=== PATIENT | female | born 1975 | race African-American/Black ===

== ENCOUNTER 2021-09-07 15:07 | Inpatient (IN) | payer OTHER ==
[2021-09-07 16:50] LABS: #Eosinphils 0.4 10x3/uL (0.0-0.5); #Monocytes 0.7 10x3/uL (0.0-1.1); #Neutrophils 6.8 10x3/uL (1.5-8.4); %Basophils 0.4 % (0.0-2.0); %Eosinophils 3.4 % (0.0-6.0); %Lymphocytes 24.7 % (18.0-47.0); %Monocytes 6.9 % (0.0-10.0); %Neutrophils 64.1 % (40.0-75.0); Hemoglobin 11.1 g/dL (12.0-15.5); Mean Corpuscular HGB CONC 33.2 g/dL (32.0-36.0); Mean Corpuscular Hemoglobin 24.3 pg (27.0-33.0); Mean Corpuscular Volume 73.2 fl (81.6-98.3); Mean Platelet Volume 9.7 fl (7.4-10.4); Platelet Count 348 10x3/uL (150-450); RBC Distribution Width 14.2 % (11.5-14.5); Red Blood Cell (RBC) Count 4.56 10x6/uL (3.90-5.03); White Blood Cell (WBC) Count 10.5 10x3/uL (3.5-10.5)
[2021-09-07 17:14] LABS: ALT (SGPT) 18 U/L (8-55); AST (SGOT) 13 U/L (5-34); Albumin 4.2 g/dL (3.5-5.0); Alkaline Phosphatase 67 U/L (40-110); Anion Gap 14 mmol/L (10-20); BUN (Urea Nitrogen) 18 mg/dL (7.0-18.7); Bilirubin, Total 0.4 mg/dL (0.2-1.2); Calc. Creatinine Clearance 0 mL/min (70-130); Calcium 9.3 mg/dL (7.8-10.44); Carbon Dioxide 21 mmol/L (22-29); Chloride 105 mmol/L (98-107); Glucose 108 mg/dL (70-105); Potassium 3.1 mmol/L (3.5-5.1); Protein, Total 8.2 g/dL (6.0-8.3); Sodium 137 mmol/L (136-145)
[2021-09-07] MEDS ORDERED: Lorazepam 2 MG/ML VIAL ONE (17:15)
[2021-09-07] MEDS ORDERED: Potassium Chloride 20 MEQ TAB ONE (17:31)
[2021-09-07] MEDS ORDERED: Aspirin Chewable 81 MG TAB ONE (18:38)
[2021-09-07] MEDS ORDERED: HYDROcodone/Acetaminophen 7.5/325 mg Tablet ONE (18:38)
[2021-09-07 20:17] LABS: Troponin I 0.012 ng/mL (< 0.028)
[2021-09-07] MEDS ORDERED: Nitroglycerin 0.4 MG TAB (25 Tab Bottle) SL PRN (20:19)
[2021-09-07] MEDS ORDERED: Lorazepam 0.5 MG TAB PO PRN (20:23)
[2021-09-07 21:57] VITALS: BMI 28.0
[2021-09-07] MEDS: Nitroglycerin 2% Ointment 1 INCH/1 GM Packet TOP SCH (22:20)
[2021-09-07] MEDS ORDERED: FLU VACC QS2021-22(6MOS UP)/PF 60 MCG/0.5 ML SYRINGE IM ONE (22:30)
[2021-09-08 04:39] LABS: #Eosinphils 0.5 10x3/uL (0.0-0.5); #Monocytes 1.1 10x3/uL (0.0-1.1); #Neutrophils 6.6 10x3/uL (1.5-8.4); %Basophils 0.3 % (0.0-2.0); %Lymphocytes 26.7 % (18.0-47.0); %Monocytes 10.1 % (0.0-10.0); %Neutrophils 58.2 % (40.0-75.0); Hemoglobin 10.2 g/dL (12.0-15.5); Mean Corpuscular HGB CONC 32.9 g/dL (32.0-36.0); Mean Corpuscular Hemoglobin 24.3 pg (27.0-33.0); Platelet Count 332 10x3/uL (150-450); RBC Distribution Width 14.3 % (11.5-14.5); Red Blood Cell (RBC) Count 4.19 10x6/uL (3.90-5.03); White Blood Cell (WBC) Count 11.3 10x3/uL (3.5-10.5)
[2021-09-08 04:53] LABS: Anion Gap 13 mmol/L (10-20); BUN (Urea Nitrogen) 17 mg/dL (7.0-18.7); Calc. Creatinine Clearance 52 mL/min (70-130); Calcium 9.1 mg/dL (7.8-10.44); Carbon Dioxide 24 mmol/L (22-29); Cardiac Risk 8.4 (Less than 4.5); Chloride 108 mmol/L (98-107); Cholesterol 177 mg/dl (< 200 Desired); Glucose 161 mg/dL (70-105); HDL Cholesterol 21 mg/dL (>60 Neg Risk); LDL Cholesterol, Calculated 101 mg/dL; Potassium 3.4 mmol/L (3.5-5.1); Sodium 142 mmol/L (136-145); Triglycerides 277 mg/dL (Less than 150)
[2021-09-08] MEDS ORDERED: Potassium Chloride 20 MEQ TAB PO SCH (05:15)
[2021-09-08] MEDS: Nitroglycerin 2% Ointment 1 INCH/1 GM Packet TOP SCH (05:47)
[2021-09-08] MEDS: Aspirin Chewable 81 MG TAB PO SCH (07:49)
[2021-09-08] MEDS: Enoxaparin Sodium 40 MG/0.4 ML SYRINGE SC SCH (07:49)
[2021-09-08 12:21] LABS: Anion Gap 13 mmol/L (10-20); BUN (Urea Nitrogen) 16 mg/dL (7.0-18.7); Calc. Creatinine Clearance 56 mL/min (70-130); Calcium 9.3 mg/dL (7.8-10.44); Carbon Dioxide 22 mmol/L (22-29); Chloride 110 mmol/L (98-107); Glucose 125 mg/dL (70-105); Potassium 3.5 mmol/L (3.5-5.1); Sodium 141 mmol/L (136-145)
[2021-09-08 12:42] LABS: Free T4 (Free Thyroxine) 1.04 ng/dL (0.70-1.48); Thyroid Stimulating Hormone 1.6073 uIU/mL (0.35-4.94)
[2021-09-08 14:27] LABS: Hemoglobin A1c 6.6 % (4.0-6.0)
[2021-09-08] MEDS: Carvedilol 3.125 MG TAB PO SCH (16:54)
[2021-09-08] MEDS: Atorvastatin Calcium 40 MG TAB PO SCH (19:47)
[2021-09-08] MEDS: Cyclobenzaprine 10 MG TAB PO SCH (19:54)
[2021-09-08] MEDS: Atorvastatin Calcium 20 MG TAB PO SCH (19:54)
[2021-09-08] MEDS ORDERED: Lidocaine 5% Patch TD SCH ×3 (21:00→22:00)
[2021-09-08] MEDS ORDERED: Amitriptyline HCl 10 MG TAB PO SCH (22:00)
[2021-09-08 23:28] LABS: SARS-CoV-2 PCR by NAA Not Detected (NotDetected)
[2021-09-09] MEDS: Acetaminophen 325 MG TAB PO PRN (06:44)
[2021-09-09] MEDS ORDERED: METFORMIN HCL 1000 MG PO SCH (07:30)
[2021-09-09] MEDS ORDERED: Lidocaine 5% Patch TD SCH (09:00)
[2021-09-09] MEDS ORDERED: Potassium Chloride 20 MEQ TAB PO SCH ×2 (09:00→15:00)
[2021-09-09] MEDS ORDERED: Transdermal Patch Removal TOP SCH ×2 (09:00→21:00)
[2021-09-09] MEDS: Transdermal Patch Removal TOP SCH (10:00)
[2021-09-09] MEDS ORDERED: Carvedilol 6.25 MG TAB PO SCH (10:00)
[2021-09-09] MEDS: Aspirin Chewable 81 MG TAB PO SCH (10:08)
[2021-09-09] MEDS: Cyclobenzaprine 10 MG TAB PO SCH ×3 (10:09→19:55)
[2021-09-09] MEDS: Enoxaparin Sodium 40 MG/0.4 ML SYRINGE SC SCH (10:09)
[2021-09-09] MEDS ORDERED: Electrolyte Replacement Protocol 1 EACH FS SCH (10:30)
[2021-09-09] MEDS: Carvedilol 3.125 MG TAB PO SCH (11:53)
[2021-09-09] MEDS ORDERED: Magnesium 2 GM/50 ML 2 GM in Premix Bag 1 BAG IVPB SCH (12:00)
[2021-09-09 14:03] LABS: Potassium 3.5 mmol/L (3.5-5.1)
[2021-09-09] MEDS: Atorvastatin Calcium 40 MG TAB PO SCH (19:45)
[2021-09-09] MEDS: Lidocaine 5% Patch TD SCH (19:55)
[2021-09-09] MEDS: Atorvastatin Calcium 20 MG TAB PO SCH (19:55)
[2021-09-09] MEDS: Amitriptyline HCl 10 MG TAB PO SCH (19:55)
[2021-09-09] MEDS: Carvedilol 6.25 MG TAB PO SCH (19:56)
[2021-09-10 05:09] LABS: Magnesium 2.2 mg/dL (1.6-2.6); Phosphorus 2.7 mg/dL (2.3-4.7); Potassium 3.5 mmol/L (3.5-5.1)
[2021-09-10] MEDS ORDERED: Potassium Chloride 20 MEQ TAB PO SCH ×2 (05:15→09:15)
[2021-09-10] MEDS ORDERED: Carvedilol 12.5 MG TAB PO SCH (09:15)
[2021-09-10] MEDS: Transdermal Patch Removal TOP SCH (09:30)
[2021-09-10] MEDS: metFORMIN 500 MG TAB PO SCH ×2 (09:33→17:44)
[2021-09-10] MEDS: Aspirin Chewable 81 MG TAB PO SCH (09:33)
[2021-09-10] MEDS: Cyclobenzaprine 10 MG TAB PO SCH ×3 (09:33→20:18)
[2021-09-10] MEDS: Enoxaparin Sodium 40 MG/0.4 ML SYRINGE SC SCH (09:34)
[2021-09-10] MEDS: Carvedilol 6.25 MG TAB PO SCH (10:23)
[2021-09-10] MEDS ORDERED: Ondansetron ODT 4 MG TAB PO PRN (13:54)
[2021-09-10 14:54] LABS: Anion Gap 14 mmol/L (10-20); BUN (Urea Nitrogen) 15 mg/dL (7.0-18.7); Calc. Creatinine Clearance 56 mL/min (70-130); Calcium 9.2 mg/dL (7.8-10.44); Carbon Dioxide 19 mmol/L (22-29); Chloride 111 mmol/L (98-107); Glucose 129 mg/dL (70-105); Potassium 3.6 mmol/L (3.5-5.1); Sodium 140 mmol/L (136-145)
[2021-09-10] MEDS: Carvedilol 12.5 MG TAB PO SCH (17:45)
[2021-09-10] MEDS: Atorvastatin Calcium 20 MG TAB PO SCH (20:18)
[2021-09-10] MEDS: Amitriptyline HCl 10 MG TAB PO SCH (20:19)
[2021-09-10] MEDS: Lidocaine 5% Patch TD SCH (20:20)
[2021-09-11 05:55] LABS: Anion Gap 12 mmol/L (10-20); BUN (Urea Nitrogen) 18 mg/dL (7.0-18.7); Calc. Creatinine Clearance 55 mL/min (70-130); Calcium 8.9 mg/dL (7.8-10.44); Carbon Dioxide 21 mmol/L (22-29); Chloride 111 mmol/L (98-107); Glucose 154 mg/dL (70-105); Magnesium 1.7 mg/dL (1.6-2.6); Potassium 3.5 mmol/L (3.5-5.1); Sodium 140 mmol/L (136-145)
[2021-09-11 06:03] LABS: #Basophils 0.1 10x3/uL (0.0-0.2); #Eosinphils 0.6 10x3/uL (0.0-0.5); #Neutrophils 7.3 10x3/uL (1.5-8.4); %Basophils 0.5 % (0.0-2.0); %Eosinophils 4.5 % (0.0-6.0); %Lymphocytes 26.8 % (18.0-47.0); %Monocytes 8.1 % (0.0-10.0); %Neutrophils 59.4 % (40.0-75.0); Mean Corpuscular HGB CONC 32.3 g/dL (32.0-36.0); Mean Corpuscular Hemoglobin 24.2 pg (27.0-33.0); Mean Corpuscular Volume 75.1 fl (81.6-98.3); Mean Platelet Volume 10.2 fl (7.4-10.4); Platelet Count 312 10x3/uL (150-450); RBC Distribution Width 14.1 % (11.5-14.5); Red Blood Cell (RBC) Count 4.13 10x6/uL (3.90-5.03); White Blood Cell (WBC) Count 12.2 10x3/uL (3.5-10.5)
[2021-09-11] MEDS ORDERED: Potassium Chloride 20 MEQ TAB PO SCH (06:15)
[2021-09-11] MEDS ORDERED: Magnesium 2 GM/50 ML 2 GM in Premix Bag 1 BAG IVPB SCH (06:15)
[2021-09-11] MEDS ORDERED: Ergocalciferol 1.25 MG(50,000 UNITS) CAP PO SCH (09:45)
[2021-09-11] MEDS: metFORMIN 500 MG TAB PO SCH ×2 (09:57→16:03)
[2021-09-11] MEDS: Aspirin Chewable 81 MG TAB PO SCH (09:57)
[2021-09-11] MEDS: Cyclobenzaprine 10 MG TAB PO SCH ×3 (09:57→20:14)
[2021-09-11] MEDS: Enoxaparin Sodium 40 MG/0.4 ML SYRINGE SC SCH (10:01)
[2021-09-11] MEDS ORDERED: Ergocalciferol 1.25 MG(50,000 UNITS) CAP ONE (10:07)
[2021-09-11] MEDS ORDERED: Carvedilol 12.5 MG TAB PO SCH (10:15)
[2021-09-11] MEDS: Transdermal Patch Removal TOP SCH (10:23)
[2021-09-11] MEDS ORDERED: Amlodipine 10 MG TAB PO SCH (12:00)
[2021-09-11] MEDS ORDERED: Spironolactone 25 MG TAB PO SCH (12:00)
[2021-09-11] MEDS ORDERED: Cholecalciferol 1,000 UNITS (25 MCG) TAB PO SCH (12:30)
[2021-09-11] MEDS: Carvedilol 12.5 MG TAB PO SCH ×2 (13:41→16:03)
[2021-09-11] MEDS: Topiramate 25 MG TAB PO SCH ×2 (16:03→20:14)
[2021-09-11] MEDS ORDERED: Mag-Al 1200 mg/1200 mg/30 ML UDCUP PO PRN (18:05)
[2021-09-11] MEDS: Atorvastatin Calcium 20 MG TAB PO SCH (20:14)
[2021-09-11] MEDS: Lidocaine 5% Patch TD SCH (20:14)
[2021-09-11] MEDS: Amitriptyline HCl 10 MG TAB PO SCH (20:14)
[2021-09-11] MEDS: Acetaminophen 325 MG TAB PO PRN (23:38)
[2021-09-12 04:45] LABS: Magnesium 1.9 mg/dL (1.6-2.6)
[2021-09-12] MEDS ORDERED: Magnesium 2 GM/50 ML 2 GM in Premix Bag 1 BAG IVPB SCH (05:00)
[2021-09-12] MEDS: Enoxaparin Sodium 40 MG/0.4 ML SYRINGE SC SCH (08:58)
[2021-09-12] MEDS: Cyclobenzaprine 10 MG TAB PO SCH ×2 (08:59→15:45)
[2021-09-12] MEDS: Carvedilol 12.5 MG TAB PO SCH ×2 (08:59→16:59)
[2021-09-12] MEDS: Aspirin Chewable 81 MG TAB PO SCH (09:00)
[2021-09-12] MEDS ORDERED: Amlodipine 10 MG TAB PO SCH (09:00)
[2021-09-12] MEDS: Topiramate 25 MG TAB PO SCH ×2 (09:00→15:45)
[2021-09-12] MEDS ORDERED: Cholecalciferol 1,000 UNITS (25 MCG) TAB PO SCH (09:00)
[2021-09-12] MEDS: metFORMIN 500 MG TAB PO SCH ×2 (09:00→16:59)
[2021-09-12] MEDS: Transdermal Patch Removal TOP SCH (09:01)
[2021-09-12 15:10] VITALS: TEMP 98.1
[2021-09-12 16:46] VITALS: BP 143/97
[2021-09-13] MEDS ORDERED: Spironolactone 25 MG TAB PO SCH (08:00)
== END 2021-09-12 18:30 | disposition home or self-care (01) | DRG 309 ==
LOC: CSHERS 15:07 → CSHTELE 15:08 → OBSVTOIN 09-09 15:19
PROVIDERS: ADMIT Family Medicine; ATTEND Hospitalist
DX: R00.0 Tachycardia, unspecified (principal); L03.90 Cellulitis, unspecified; I10 Essential (primary) hypertension; E11.9 Type 2 diabetes mellitus without complications; E78.5 Hyperlipidemia, unspecified; G89.29 Other chronic pain; F41.1 Generalized anxiety disorder; D57.3 Sickle-cell trait; E87.6 Hypokalemia; F41.9 Anxiety disorder, unspecified; F90.9 Attention-deficit hyperactivity disorder, unspecified type; G47.33 Obstructive sleep apnea (adult) (pediatric); G43.901 Migraine, unspecified, not intractable, with status migrainosus; R94.31 Abnormal electrocardiogram [ECG] [EKG]; E55.9 Vitamin D deficiency, unspecified; D50.9 Iron deficiency anemia, unspecified; Z20.822 Contact with and (suspected) exposure to COVID-19; E21.3 Hyperparathyroidism, unspecified; M54.9 Dorsalgia, unspecified; F17.290 Nicotine dependence, other tobacco product, uncomplicated; Z79.899 Other long term (current) drug therapy; Z82.49 Family history of ischemic heart disease and other diseases of the circulatory system; Z88.8 Allergy status to other drugs, medicaments and biological substances; Z91.040 Latex allergy status
CPT/HCPCS: 36415; 36416; 71275; 74174; 80048; 80053; 80061; 82306; 82330; 82652; 83036; 83735; 83970; 84100; 84132; 84439; 84443; 84484; 85025; 93005; 93010; 93306; 94760; 96372; 96374; 96375; G0378; J1650; J2060; J3475; Q0162; U0003; U0005

== ENCOUNTER 2021-09-13 13:28 | Inpatient (IN) | payer OTHER ==
[2021-09-13] MEDS ORDERED: Lactated Ringer's 1,000 ML IV SCH (14:45)
[2021-09-13] MEDS ORDERED: Topiramate 25 MG TAB PO SCH (15:00)
[2021-09-13 15:23] VITALS: BMI 29.2
[2021-09-13] MEDS: Cyclobenzaprine 10 MG TAB PO SCH ×2 (16:30→21:43)
[2021-09-13] MEDS: Doxycycline 100 MG CAP PO SCH (16:30)
[2021-09-13] MEDS: metFORMIN 500 MG TAB PO SCH (16:31)
[2021-09-13] MEDS: Topiramate 25 MG TAB PO SCH ×2 (16:31→21:43)
[2021-09-13] MEDS: Carvedilol 12.5 MG TAB PO SCH (16:31)
[2021-09-13] MEDS ORDERED: Ondansetron PF 4 MG/2 ML Vial IVP SCH (19:00)
[2021-09-13] MEDS ORDERED: Atorvastatin Calcium 20 MG TAB PO SCH (21:00)
[2021-09-13] MEDS ORDERED: Atorvastatin Calcium 40 MG TAB PO SCH (21:00)
[2021-09-13] MEDS: Docusate 100 MG CAP PO SCH (21:43)
[2021-09-13] MEDS: Fluticasone Propionate Nasal Spray 16 gm Bottle NASAL SCH (21:43)
[2021-09-13] MEDS: Amitriptyline HCl 10 MG TAB PO SCH (21:43)
[2021-09-14] MEDS: Doxycycline 100 MG CAP PO SCH ×2 (02:39→14:52)
[2021-09-14 04:58] LABS: #Eosinphils 0.5 10x3/uL (0.0-0.5); #Neutrophils 7.4 10x3/uL (1.5-8.4); %Basophils 0.3 % (0.0-2.0); %Eosinophils 3.9 % (0.0-6.0); %Lymphocytes 25.3 % (18.0-47.0); %Monocytes 8.1 % (0.0-10.0); %Neutrophils 61.8 % (40.0-75.0); Hemoglobin 10.2 g/dL (12.0-15.5); Mean Corpuscular HGB CONC 32.8 g/dL (32.0-36.0); Mean Corpuscular Hemoglobin 24.2 pg (27.0-33.0); Mean Corpuscular Volume 73.9 fl (81.6-98.3); Mean Platelet Volume 10.1 fl (7.4-10.4); Platelet Count 333 10x3/uL (150-450); RBC Distribution Width 14.3 % (11.5-14.5); Red Blood Cell (RBC) Count 4.21 10x6/uL (3.90-5.03)
[2021-09-14 05:55] LABS: Anion Gap 15 mmol/L (10-20); BUN (Urea Nitrogen) 17 mg/dL (7.0-18.7); Calc. Creatinine Clearance 49 mL/min (70-130); Carbon Dioxide 20 mmol/L (22-29); Chloride 107 mmol/L (98-107); Glucose 125 mg/dL (70-105); Sodium 139 mmol/L (136-145)
[2021-09-14] MEDS ORDERED: Lidocaine 5% Patch TD SCH (09:00)
[2021-09-14] MEDS ORDERED: Aspirin Chewable 81 MG TAB PO SCH (09:00)
[2021-09-14] MEDS: Amlodipine 10 MG TAB PO SCH (09:31)
[2021-09-14] MEDS: Docusate 100 MG CAP PO SCH ×2 (09:33→22:20)
[2021-09-14] MEDS: Lisinopril 20 MG TAB PO SCH (09:34)
[2021-09-14] MEDS: Hydrochlorothiazide 25 MG TAB PO SCH (09:35)
[2021-09-14] MEDS: Cholecalciferol 1,000 UNITS (25 MCG) TAB PO SCH (09:35)
[2021-09-14] MEDS: Cyclobenzaprine 10 MG TAB PO SCH ×3 (09:36→22:20)
[2021-09-14] MEDS: Enoxaparin Sodium 40 MG/0.4 ML SYRINGE SC SCH (09:38)
[2021-09-14] MEDS: metFORMIN 500 MG TAB PO SCH ×2 (09:39→17:49)
[2021-09-14] MEDS: Carvedilol 12.5 MG TAB PO SCH ×2 (09:39→17:49)
[2021-09-14] MEDS: Topiramate 25 MG TAB PO SCH ×3 (09:39→22:20)
[2021-09-14 11:24] LABS: Bilirubin Neg (Negative); Blood, Urine 150 (Negative); Clarity Clear (Clear); Glucose, Urine (Dipstick) Normal (Negative); Ketone, Urine Negative (Negative); Leukocyte 100 (Negative); Nitrite Negative (Negative); Protein, Urine (Dipstick) 30 mg/dl (Neg-Trace); Urobilinogen Normal mg/dL (Less than 2)
[2021-09-14 11:36] LABS: Urine Culture Reflex No No
[2021-09-14] MEDS ORDERED: Potassium Bicarbonate/Cit Ac 20 MEQ TAB PO SCH (11:45)
[2021-09-14 11:50] LABS: Bacteria/HPF 2+ HPF (None Seen); RBC/HPF 0-3 HPF (0-3)
[2021-09-14] MEDS: Fluticasone Propionate Nasal Spray 16 gm Bottle NASAL SCH ×2 (12:50→22:19)
[2021-09-14] MEDS ORDERED: Transdermal Patch Removal TOP SCH (21:00)
[2021-09-14] MEDS: Amitriptyline HCl 10 MG TAB PO SCH (22:21)
[2021-09-14] MEDS: Lidocaine 5% Patch TD SCH (22:22)
[2021-09-15] MEDS: Doxycycline 100 MG CAP PO SCH ×2 (02:42→16:19)
[2021-09-15 04:52] LABS: #Basophils 0.1 10x3/uL (0.0-0.2); #Eosinphils 0.4 10x3/uL (0.0-0.5); #Monocytes 1.2 10x3/uL (0.0-1.1); #Neutrophils 7.6 10x3/uL (1.5-8.4); %Basophils 0.4 % (0.0-2.0); %Eosinophils 3.4 % (0.0-6.0); %Lymphocytes 21.8 % (18.0-47.0); %Monocytes 10.2 % (0.0-10.0); %Neutrophils 63.7 % (40.0-75.0); Hemoglobin 10.5 g/dL (12.0-15.5); Mean Corpuscular HGB CONC 32.8 g/dL (32.0-36.0); Mean Corpuscular Hemoglobin 24.2 pg (27.0-33.0); Mean Corpuscular Volume 73.7 fl (81.6-98.3); Platelet Count 313 10x3/uL (150-450); RBC Distribution Width 14.2 % (11.5-14.5); Red Blood Cell (RBC) Count 4.34 10x6/uL (3.90-5.03); White Blood Cell (WBC) Count 11.9 10x3/uL (3.5-10.5)
[2021-09-15 04:56] LABS: Anion Gap 14 mmol/L (10-20); BUN (Urea Nitrogen) 20 mg/dL (7.0-18.7); Calc. Creatinine Clearance 51 mL/min (70-130); Carbon Dioxide 21 mmol/L (22-29); Chloride 106 mmol/L (98-107); Glucose 126 mg/dL (70-105); Potassium 3.2 mmol/L (3.5-5.1); Sodium 138 mmol/L (136-145)
[2021-09-15] MEDS: Ondansetron ODT 4 MG TAB PO PRN (09:56)
[2021-09-15] MEDS: Cyclobenzaprine 10 MG TAB PO SCH ×3 (10:03→21:38)
[2021-09-15] MEDS: Topiramate 25 MG TAB PO SCH ×3 (10:04→23:10)
[2021-09-15] MEDS: Cholecalciferol 1,000 UNITS (25 MCG) TAB PO SCH (10:04)
[2021-09-15] MEDS: Hydrochlorothiazide 25 MG TAB PO SCH (10:04)
[2021-09-15] MEDS: metFORMIN 500 MG TAB PO SCH ×2 (10:04→16:20)
[2021-09-15] MEDS: Lisinopril 20 MG TAB PO SCH (10:04)
[2021-09-15] MEDS: Docusate 100 MG CAP PO SCH ×2 (10:04→21:38)
[2021-09-15] MEDS: Enoxaparin Sodium 40 MG/0.4 ML SYRINGE SC SCH (10:05)
[2021-09-15] MEDS: Carvedilol 12.5 MG TAB PO SCH ×2 (10:05→16:19)
[2021-09-15] MEDS: Amlodipine 10 MG TAB PO SCH (10:05)
[2021-09-15] MEDS: Fluticasone Propionate Nasal Spray 16 gm Bottle NASAL SCH ×2 (10:14→21:46)
[2021-09-15] MEDS: Transdermal Patch Removal TOP SCH (10:19)
[2021-09-15] MEDS: Amitriptyline HCl 10 MG TAB PO SCH (21:38)
[2021-09-15] MEDS: Lidocaine 5% Patch TD SCH (21:39)
[2021-09-16] MEDS: Doxycycline 100 MG CAP PO SCH (03:19)
[2021-09-16 04:05] LABS: #Basophils 0.1 10x3/uL (0.0-0.2); #Eosinphils 0.4 10x3/uL (0.0-0.5); %Basophils 0.4 % (0.0-2.0); %Eosinophils 3.2 % (0.0-6.0); %Lymphocytes 25.7 % (18.0-47.0); %Monocytes 8.6 % (0.0-10.0); %Neutrophils 61.5 % (40.0-75.0); Hemoglobin 10.5 g/dL (12.0-15.5); Mean Corpuscular HGB CONC 32.9 g/dL (32.0-36.0); Mean Corpuscular Hemoglobin 24.2 pg (27.0-33.0); Mean Corpuscular Volume 73.7 fl (81.6-98.3); Mean Platelet Volume 9.8 fl (7.4-10.4); Platelet Count 331 10x3/uL (150-450); RBC Distribution Width 14.2 % (11.5-14.5); Red Blood Cell (RBC) Count 4.33 10x6/uL (3.90-5.03); White Blood Cell (WBC) Count 11.3 10x3/uL (3.5-10.5)
[2021-09-16 04:31] LABS: Anion Gap 15 mmol/L (10-20); BUN (Urea Nitrogen) 20 mg/dL (7.0-18.7); Calc. Creatinine Clearance 55 mL/min (70-130); Calcium 9.3 mg/dL (7.8-10.44); Carbon Dioxide 21 mmol/L (22-29); Chloride 105 mmol/L (98-107); Glucose 123 mg/dL (70-105); Sodium 138 mmol/L (136-145)
[2021-09-16 04:46] LABS: Potassium 2.9 mmol/L (3.5-5.1)
[2021-09-16] MEDS: Potassium Chloride 20 MEQ TAB PO SCH ×2 (06:19→10:59)
[2021-09-16] MEDS: metFORMIN 500 MG TAB PO SCH (07:14)
[2021-09-16] MEDS: Ondansetron ODT 4 MG TAB PO PRN (10:52)
[2021-09-16] MEDS: Amlodipine 10 MG TAB PO SCH (10:58)
[2021-09-16] MEDS: Lisinopril 20 MG TAB PO SCH (10:59)
[2021-09-16] MEDS: Topiramate 25 MG TAB PO SCH (10:59)
[2021-09-16] MEDS: Cholecalciferol 1,000 UNITS (25 MCG) TAB PO SCH (10:59)
[2021-09-16] MEDS: Cyclobenzaprine 10 MG TAB PO SCH (11:00)
[2021-09-16] MEDS: Enoxaparin Sodium 40 MG/0.4 ML SYRINGE SC SCH (11:01)
[2021-09-16] MEDS: Carvedilol 12.5 MG TAB PO SCH (11:03)
[2021-09-16] MEDS: Hydrochlorothiazide 25 MG TAB PO SCH (11:07)
[2021-09-16] MEDS: Docusate 100 MG CAP PO SCH (11:24)
[2021-09-16] MEDS: Fluticasone Propionate Nasal Spray 16 gm Bottle NASAL SCH (11:24)
[2021-09-16] MEDS: Transdermal Patch Removal TOP SCH (11:25)
[2021-09-16 12:32] VITALS: BP 120/89; TEMP 98.8
== END 2021-09-16 13:30 | disposition home or self-care (01) | DRG 603 ==
LOC: OBSVTOIN 13:28 → UNDOADMOB 13:28 → INTOOBSV 13:28 → CSHTELE 13:28 → OBSVTOIN 09-16 07:38
PROVIDERS: ADMIT Hospitalist; ATTEND Hospitalist
DX: L03.113 Cellulitis of right upper limb (principal); I10 Essential (primary) hypertension; E11.9 Type 2 diabetes mellitus without complications; L02.413 Cutaneous abscess of right upper limb; F41.1 Generalized anxiety disorder; E86.1 Hypovolemia; G89.29 Other chronic pain; E78.5 Hyperlipidemia, unspecified; F17.290 Nicotine dependence, other tobacco product, uncomplicated; Z88.8 Allergy status to other drugs, medicaments and biological substances; Z91.040 Latex allergy status; Z79.84 Long term (current) use of oral hypoglycemic drugs; Z79.899 Other long term (current) drug therapy; Z79.82 Long term (current) use of aspirin; Z83.3 Family history of diabetes mellitus; Z80.1 Family history of malignant neoplasm of trachea, bronchus and lung; Z80.3 Family history of malignant neoplasm of breast; Z82.49 Family history of ischemic heart disease and other diseases of the circulatory system
CPT/HCPCS: 36415; 36416; 76700; 76770; 80048; 81001; 84145; 85025; 87040; 87086; 93005; 93010; 96372; 96374; G0378; J1650; J2405; J7120; Q0162

== ENCOUNTER 2023-01-18 15:06 | Emergency (ER) | payer OTHER ==
[2023-01-18] MEDS ORDERED: Acetaminophen 500 MG TAB ONE (15:47)
[2023-01-18 15:51] LABS: #Basophils 0.1 10x3/uL (0.0-0.2); #Eosinphils 0.4 10x3/uL (0.0-0.5); #Monocytes 0.9 10x3/uL (0.0-1.1); #Neutrophils 7.2 10x3/uL (1.5-8.4); %Basophils 0.4 % (0.0-2.0); %Eosinophils 3.5 % (0.0-6.0); %Lymphocytes 24.5 % (18.0-47.0); %Monocytes 7.7 % (0.0-10.0); %Neutrophils 63.5 % (40.0-75.0); Hemoglobin 11.7 g/dL (12.0-15.5); Mean Corpuscular HGB CONC 32.7 g/dL (32.0-36.0); Mean Corpuscular Hemoglobin 23.9 pg (27.0-33.0); Mean Corpuscular Volume 73.1 fl (81.6-98.3); Mean Platelet Volume 10.3 fl (7.4-10.4); Platelet Count 386 10x3/uL (150-450); RBC Distribution Width 14.9 % (11.5-14.5); White Blood Cell (WBC) Count 11.3 10x3/uL (3.5-10.5)
[2023-01-18 16:17] LABS: ALT (SGPT) 13 U/L (8-55); AST (SGOT) 17 U/L (5-34); Albumin 4.3 g/dL (3.5-5.0); Alkaline Phosphatase 91 U/L (40-110); Anion Gap 16 mmol/L (10-20); BUN (Urea Nitrogen) 17 mg/dL (7.0-18.7); Bilirubin, Total 0.4 mg/dL (0.2-1.2); Calc. Creatinine Clearance 0 mL/min (70-130); Calcium 9.4 mg/dL (7.8-10.44); Carbon Dioxide 19 mmol/L (22-29); Chloride 110 mmol/L (98-107); Estimated GFR 41; Globulin 3.3 g/dL (2.4-3.5); Glucose 140 mg/dL (70-105); Lipase 57 U/L (8-78); Potassium 3.9 mmol/L (3.5-5.1); Protein, Total 7.6 g/dL (6.0-8.3); Sodium 141 mmol/L (136-145)
== END 2023-01-18 16:49 | disposition home or self-care (01) ==
LOC: CSHERS 15:06
DX: R07.2 Precordial pain (principal); F41.9 Anxiety disorder, unspecified; I12.9 Hypertensive chronic kidney disease with stage 1 through stage 4 chronic kidney disease, or unspecified chronic kidney disease; E11.22 Type 2 diabetes mellitus with diabetic chronic kidney disease; N18.9 Chronic kidney disease, unspecified; E78.5 Hyperlipidemia, unspecified; Z79.899 Other long term (current) drug therapy; Z79.84 Long term (current) use of oral hypoglycemic drugs
CPT/HCPCS: 71045; 80053; 83690; 84484; 85025; 93005; 96360